=== PATIENT | male | born 1940 | race Caucasian/White ===

== ENCOUNTER → 2024-11-28 | Day surgery (SDC) | payer MEDICARE ==
[~2024-11-28] MED LIST: Lidocaine 1% PF 5 ML VIAL ONE; PROPOFOL 20 ML ONE
[2024-11-28 12:23] VITALS: BP 131/81; TEMP 97.6
== END ==
LOC: CSHSDC 11:21
PROVIDERS: ATTEND Internal Medicine Cardiovascular Disease
PROC: 5A2204Z Restoration of Cardiac Rhythm, Single (ICD-10-PCS; principal; 2024-11-28)
DX: I48.0 Paroxysmal atrial fibrillation (principal); I48.3 Typical atrial flutter; I49.3 Ventricular premature depolarization; I49.5 Sick sinus syndrome; I44.1 Atrioventricular block, second degree; I10 Essential (primary) hypertension; I25.10 Atherosclerotic heart disease of native coronary artery without angina pectoris; Z79.01 Long term (current) use of anticoagulants; Z79.82 Long term (current) use of aspirin; Z79.899 Other long term (current) drug therapy
CPT/HCPCS: 92960; 93005; J2704; 93010